=== PATIENT | male | born 1950 | race Two or more races ===

== ENCOUNTER 2017-09-30 02:29 | Inpatient (IN) | payer MEDICAID, MEDICARE ==
[~2017-09-30] VITALS: Ht 157.5 cm; Wt 68.3 kg
--- NOTE | 2017-09-30 02:30 | NUR ---
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 PT AAOX4 NO ACUTE DISTRESS NOTED, RESP EVEN AND UNLABORED. PLACE PT ON CARDIAC MONITORING, CONTINUOUS POX. ER MD AT BEDSIDE TO EVAL PT WITH ORDERS RECEIVED. WILL CARRY OUT ORDERS.
[2017-09-30] MEDS ORDERED: NITROGLYCERIN 0.4 MG/TAB BOTTLE ONE (02:53)
[2017-09-30 02:54] LABS: BASOPHILS # (AUTO) 0.1 /CMM (0.0-0.2); BASOPHILS % (AUTO) 0.6 % (0.0-2.0); EOSINOPHILS % (AUTO) 2.1 % (0.0-6.0); HEMATOCRIT 41 % (39-51); HEMOGLOBIN 13.7 g/dL (13.5-17.5); LYMPHOCYTES # (AUTO) 3.7 /CMM (0.8-4.8); LYMPHOCYTES % (AUTO) 43.2 % (20.0-44.0); MEAN CORPUSCULAR HGB CONC 33 g/dl (31.0-36.0); MEAN CORPUSCULAR VOLUME 83 fL (80-96); MONOCYTES # (AUTO) 0.6 /CMM (0.1-1.30); MONOCYTES % (AUTO) 6.6 % (2.0-12.0); NEUTROPHILS # (AUTO) 4.1 /CMM (1.8-8.9); NEUTROPHILS % (AUTO) 47.5 % (43.0-81.0); PLATELET COUNT (AUTO) 237 /CMM (150-450); RDW COEFFICIENT OF VARIATION 14.2 (11.5-15.0); RED BLOOD CELL COUNT(AUTO) 4.97 MIL/uL (4.5-6.0); WHITE BLOOD COUNT (AUTO) 8.7 K/uL (4.3-11.0)
[2017-09-30] MEDS ORDERED: ASPIRIN 325 MG TABLET ONE (02:54)
[2017-09-30] MEDS ORDERED: NITROGLYCERIN 0.4 MG/TAB BOTTLE SL ONE (03:00)
[2017-09-30] MEDS ORDERED: ASPIRIN 325 MG TABLET PO ONE (03:00)
[2017-09-30 03:09] LABS: CALCIUM, SERUM 8.6 mg/dL (8.5-10.1); CARBON DIOXIDE 26 mmol/L (21-32); CHLORIDE 105 mmol/L (98-107); CREATININE 1.1 mg/dL (0.6-1.3); GLUCOSE 118 mg/dL (74-106); POTASSIUM 3.8 mmol/L (3.5-5.1); SODIUM SERUM 140 mmol/L (136-145); UREA NITROGEN, BLOOD 16 mg/dL (7-18)
[2017-09-30 03:12] LABS: INR 1.01 (0.87-1.13)
[2017-09-30 03:14] LABS: TROPONIN I < 0.017 ng/mL (0.00-0.056)
[2017-09-30 03:27] LABS: ALANINE AMINOTRANSFERASE 42 U/L (12-78); ALBUMIN 3.8 g/dL (3.4-5.0); ALKALINE PHOSPHATASE 81 U/L (46-116); ASPARTATE AMINOTRANSFERASE 31 U/L (15-37); B-TYPE NATRIURETIC PEPTIDE 103 PG/ML (0-125); BILIRUBIN,TOTAL 0.3 mg/dL (0.2-1.0); TOTAL PROTEIN, SERUM 7.7 g/dL (6.4-8.2)
[2017-09-30] MEDS ORDERED: METF-440 PO (03:31)
[2017-09-30] MEDS ORDERED: LISI10TA5 PO (03:31)
[2017-09-30] MEDS ORDERED: ATOR40TA PO (03:31)
[2017-09-30] MEDS ORDERED: DOCU100T2 PO (03:31)
[2017-09-30] MEDS ORDERED: TYL2T MC (03:31)
[2017-09-30] MEDS ORDERED: ASPI-605 PO (03:31)
[2017-09-30] MEDS ORDERED: MAGN400T6 PO (03:31)
[2017-09-30] MEDS ORDERED: FURO20TA4 PO (03:31)
[2017-09-30] MEDS ORDERED: METO50TA16 PO (03:31)
[2017-09-30] MEDS ORDERED: POTA10CA43 PO (03:31)
[2017-09-30] MEDS ORDERED: ESCI5TAB PO (03:31)
[2017-09-30] MEDS ORDERED: APIX5TAB PO (03:31)
[2017-09-30] MEDS ORDERED: LACT1CAP7 PO (03:31)
[2017-09-30] MEDS ORDERED: LANS30CA56 PO (03:31)
[2017-09-30] MEDS ORDERED: LEVO25PO PO (03:31)
--- NOTE | 2017-09-30 04:04 | NUR ---
PER ADMITTING OKAY TO ADMIT.
--- NOTE | 2017-09-30 04:05 | NUR ---
CALLED [facility] FOR PANEL CALL. DR MELTON SPEAKING TO NO MIXON REGARDING ADMISISON
--- NOTE | 2017-09-30 04:24 | NUR ---
REPORT CALLED TO EDUCATION SUPERVISORMADHU CODY. WILL TRANSPORT PT VIA ACLS PROTOCOL.
[2017-09-30] MEDS ORDERED: METO-356 PO (04:26)
[2017-09-30] MEDS ORDERED: ONDANSETRON HCL/PF 4 MG/2 ML VIAL IVP PRN (04:30)
[2017-09-30] MEDS ORDERED: MORPHINE SULFATE INJ 4 MG/ML DISP.SYRIN IV PRN (04:30)
[2017-09-30] MEDS ORDERED: Z GUARD REMEDY 2 OZ OINT TP PRN (04:30)
[2017-09-30] MEDS ORDERED: MAGNESIUM HYDROXIDE 30 ML UDC PO PRN (04:30)
[2017-09-30] MEDS ORDERED: ACETAMINOPHEN 325 MG TABLET PO PRN (04:30)
[2017-09-30] MEDS ORDERED: HYDROCODONE/APAP 5/325MG 1 EACH TABLET PO PRN (04:30)
[2017-09-30] MEDS ORDERED: MAG HYDROX/AL HYDROX/SIMETH 30 ML UDC PO PRN (04:30)
[2017-09-30 04:50] VITALS: BP 125/67
--- NOTE | 2017-09-30 04:50 | NUR ---
LITHOGRAPH DESIGNERNURSE SANE NOTE PT ARRIVED TO TELE UNIT IN STABLE CONDITION VIA GURNEY ACCOMPANIED BY ER STAFF. PT ABLE TO AMBULATE FROM GURNEY TO BED WITH ASSISTANCE. PT IS A/O X4, AFEBRILE. RESPIRATIONS ARE EVEN AND UNLABORED, NOT IN ANY ACUTE DISTRESS NOTED. PUPILS ARE REACTIVE TO LIGHT. BILATERAL HAND MRI CT TECH ARE STRONG AND EQUAL. DENIES ANY PAIN AT THIS TIME. NO C/O SOB, N/V. ABDOMEN IS SOFT AND NONDISTENDED. BOWEL SOUNDS ARE PRESENT IN ALL 4 QUADRANTS. DENIES ANY BLADDER DISCOMFORT. IV SITE TO RAC INTACT, NO INFILTRATION NOTED. DRESSING KEPT CLEAN AND DRY. SURGICAL INCISION SCAR NOTED TO MID LOWER ABD, SKIN IS INTACT, NO S/SX OF INFECTION NOTED. PHOTO TAKEN AND PLACED IN PTS CHART. SAFETY MEASURES ARE IN PLACE. INSTRUCTED PT TO USE CALL LIGHT WHEN ASSISTANCE IS NEEDED, CALL LIGHT IS LEFT WITHIN REACH. LAZARA MIXON MADE AWARE OF ADMISSION W/ ORDERS NOTED AND CARRIED OUT.
[2017-09-30 04:55] VITALS: BP 125/67
--- NOTE | 2017-09-30 05:15 | NUR ---
SSIS ARCHITECT NOTE CALLED LAZARA MIXON RE: MED RECON. PER APURVA TO DISCONTINUE ALL MEDICATIONS EXCEPT THE ORDER SETS AND TO NEW ORDER OF METOPROLOL SUCCINATE 25MG PO DAILY. ORDERS READ BACK AND VERIFIED. ORDERS NOTED AND CARRIED OUT.
--- NOTE | 2017-09-30 06:33 | NUR ---
BARBER CLOSING NOTES NEEDS MET AND RENDERED. AWAKE AND RESPONSIVE, AFEBRILE. RESPIRATIONS ARE EVEN AND UNLABORED, NOT IN ANY ACUTE DISTRESS NOTED. DENIES ANY PAIN AT THIS TIME. NO C/O SOB, N/V. IV SITE INTACT, NO INFILTRATION NOTED. DRESSING KEPT CLEAN AND DRY. SAFETY MEASURES ARE IN PLACE. BED IS IN ITS LOW AND LOCKED POSITION. REMINDED PT TO USE CALL LIGHT WHEN ASSISTANCE IS NEEDED. WILL ENDORSE TO NEXT SHIFT FOR CONTINUITY OF CARE.
[2017-09-30 08:00] VITALS: BP 130/74
--- NOTE | 2017-09-30 08:00 | NUR ---
MS RN NOTES PATIENT IN BED RESTING NO SOB OR ACUTE DISTRESS NOTED. PATIENT ALERT, ORIENTED X4. VERBALIZES REQUEST TO BE DISCHARGE HOME. INSTRUCTED PATIENT TO WAIT FOR EVALUATION BY DR. SOLOMON AND DR. HARTMANN. VERBALIZED UNDERSTANDING. PERIPHERAL IV INTACT PATENT. BED IN LOW LOCKED POSITION . WILL CONTINUE TO MONITOR.
[2017-09-30] MEDS ORDERED: METFORMIN 500 MG TABLET PO SCH (09:00)
[2017-09-30] MEDS ORDERED: ASPIRIN EC 81 MG TABLET.DR PO SCH (09:00)
[2017-09-30] MEDS ORDERED: APIXABAN 5 MG TABLET PO SCH (09:00)
[2017-09-30] MEDS ORDERED: LISINOPRIL (10MG) 10 MG TABLET PO SCH (09:00)
[2017-09-30] MEDS ORDERED: LACTOBACILLUS RHAMNOSUS GG 1 EACH CAP.SPRINK PO SCH (09:00)
[2017-09-30] MEDS ORDERED: METOPROLOL TARTRATE 50 MG TABLET PO SCH (09:00)
[2017-09-30] MEDS ORDERED: Medication Not On Formulary EA (Escitalopram Oxalate (Lexapro) 1 TAB) PO SCH (09:00)
[2017-09-30] MEDS ORDERED: METOPROLOL SUCCINATE 25 MG TAB.SR.24H PO SCH ×2 (09:00)
[2017-09-30] MEDS ORDERED: ASPIRIN 81 MG TAB.CHEW PO SCH (09:00)
[2017-09-30] MEDS ORDERED: FUROSEMIDE 20 MG TABLET PO SCH (09:00)
[2017-09-30] MEDS ORDERED: PANTOPRAZOLE 40 MG TABLET.DR PO SCH (09:00)
[2017-09-30] MEDS ORDERED: MAGNESIUM OXIDE 400 MG TABLET PO SCH (09:00)
[2017-09-30] MEDS ORDERED: DOCUSATE SODIUM LIQ 100 MG/10 ML UDC PO SCH (09:00)
[2017-09-30 09:11] VITALS: BP 130/74
--- NOTE | 2017-09-30 11:30 | NUR ---
RN NOTES PATIENT RETURNED FROM CTA STABLE CONDITION. BP OF 122/62 PULE :58 RESP.: 18 O2 SAT 98% WILL CONTINUE TO MONITOR.
--- NOTE | 2017-09-30 13:40 | NUR ---
MS RN NOTES DR. HARTMANN MADE AWARE OF CTA RESULTS STATES TO DISCHARGE PATIENT HOME TO FOLLOW UP WITH [employer] CONSULTANT. ORDERS NOTED AND CARRIED OUT.
[2017-09-30] MEDS ORDERED: ASPI-1152 PO (14:12)
--- NOTE | 2017-09-30 14:13 | NUR ---
MS RN NOTES PATIENT DISCHARGED HOME IN STABLE CONDITION NO SOB OR ACUTE DISTRESS NOTED. PATIENT ALERT, ORIENTED X4 DISCHARGE INSTRUCTIONS PROVIDED VERBALIZED UNDERSTANDING. ALL BELONGINGS ACCOUNTED FOR, BELONGING LIST SIGNED. DISCHARGE PROTOCOL FOLLOWED. MEDICAL RECORDS PROVIDED TO FOLLOW UP WITH [employer] SPECIALIST. STATES HE WILL SEE HIS [employer] SPECIALIST TOMORROW MORNING. PERIPHERAL IV REMOVED. ID BAND REMOVED. PATIENT ESCORTED TO CAR WITH FRIEND.
[2017-09-30] MEDS ORDERED: ATORVASTATIN 40 MG TABLET PO SCH (18:00)
== END 2017-09-30 14:10 | disposition home or self-care (01) | DRG 198 ==
LOC: ER 02:31 → TELE 04:10 → MED 12:09
PROVIDERS: ADMIT Nurse Practitioner Acute Care; ATTEND Nurse Practitioner Acute Care
DX: I25.10 Atherosclerotic heart disease of native coronary artery without angina pectoris (principal); I10 Essential (primary) hypertension; Z79.82 Long term (current) use of aspirin; Z79.84 Long term (current) use of oral hypoglycemic drugs; Z79.899 Other long term (current) drug therapy
CPT/HCPCS: 36415; 71045-TC; 75574; 80048-TC; 80076-TC; 83880; 84484-TC; 85025-TC; 85730-TC; 87081-TC; 93307-TC; A4606; Z7610

== ENCOUNTER 2018-07-17 05:42 | Inpatient (IN) | payer MEDICARE, MEDICAID ==
[~2018-07-17] VITALS: Ht 160 cm; Wt 66.7 kg
[2018-07-17] VITALS (7 sets, daily range): BP systolic 117–126; BP diastolic 61–74
[~2018-07-17 05:42] MED LIST: ASPI-1152 PO; ATOR40TA PO; FINA5TAB11 PO; HYDR-4384 PO; ISOS30TA6 PO; METO-356 PO; NITR0.4T SL; SERT50TA PO; TAMS-12 PO; TICA90TA PO
[2018-07-17 06:44] LABS: BASOPHILS % (AUTO) 0.4 % (0.0-2.0); EOSINOPHILS % (AUTO) 1.6 % (0.0-6.0); HEMATOCRIT 42 % (39-51); HEMOGLOBIN 13.9 g/dL (13.5-17.5); LYMPHOCYTES # (AUTO) 1.5 /CMM (0.8-4.8); LYMPHOCYTES % (AUTO) 25.7 % (20.0-44.0); MEAN CORPUSCULAR HGB CONC 33 g/dl (31.0-36.0); MEAN CORPUSCULAR VOLUME 89 fL (80-96); MONOCYTES # (AUTO) 0.5 /CMM (0.1-1.30); MONOCYTES % (AUTO) 8.1 % (2.0-12.0); NEUTROPHILS # (AUTO) 3.9 /CMM (1.8-8.9); NEUTROPHILS % (AUTO) 64.2 % (43.0-81.0); PLATELET COUNT (AUTO) 194 /CMM (150-450)
[2018-07-17 06:53] LABS: CALCIUM, SERUM 8.6 mg/dL (8.5-10.1); CARBON DIOXIDE 24 mmol/L (21-32); CHLORIDE 108 mmol/L (98-107); CREATININE 1.2 mg/dL (0.6-1.3); GLUCOSE 110 mg/dL (74-106); POTASSIUM 4.2 mmol/L (3.5-5.1); SODIUM SERUM 144 mmol/L (136-145); UREA NITROGEN, BLOOD 16 mg/dL (7-18)
[2018-07-17 07:08] LABS: ALANINE AMINOTRANSFERASE 37 U/L (12-78); ALBUMIN 3.6 g/dL (3.4-5.0); ALKALINE PHOSPHATASE 68 U/L (46-116); ASPARTATE AMINOTRANSFERASE 27 U/L (15-37); BILIRUBIN,DIRECT 0.2 mg/dL (0.0-0.2); BILIRUBIN,TOTAL 0.8 mg/dL (0.2-1.0); TOTAL PROTEIN, SERUM 7.1 g/dL (6.4-8.2)
[2018-07-17] MEDS ORDERED: NITROGLYCERIN PACKET 1 GM PACKET ONE ×2 (07:59→08:01)
[2018-07-17] MEDS ORDERED: ASPIRIN 325 MG TABLET ONE (07:59)
[2018-07-17] MEDS ORDERED: NITROGLYCERIN PACKET 1 GM PACKET TD ONE (08:00)
[2018-07-17] MEDS ORDERED: ASPIRIN 325 MG TABLET PO ONE (08:00)
[2018-07-17] MEDS ORDERED: ONDANSETRON HCL/PF 4 MG/2 ML VIAL IVP PRN (09:00)
[2018-07-17] MEDS ORDERED: MAG HYDROX/AL HYDROX/SIMETH 30 ML UDC PO PRN (09:00)
[2018-07-17] MEDS ORDERED: NITROGLYCERIN 0.4 MG/TAB BOTTLE SL PRN (09:00)
[2018-07-17] MEDS ORDERED: ACETAMINOPHEN 325 MG TABLET PO PRN (09:00)
[2018-07-17] MEDS ORDERED: Z GUARD REMEDY 2 OZ OINT TP PRN (09:00)
[2018-07-17] MEDS ORDERED: HYDROCODONE/APAP 5/325MG 1 EACH TABLET PO PRN (09:00)
[2018-07-17] MEDS ORDERED: MAGNESIUM HYDROXIDE 30 ML UDC PO PRN (09:00)
[2018-07-17] MEDS ORDERED: ZOLPIDEM TARTRATE 5 MG TABLET PO PRN (09:00)
[2018-07-17] MEDS ORDERED: LEVO500T90 PO (09:12)
[2018-07-17] MEDS ORDERED: OMEP40CA37 PO (09:12)
[2018-07-17] MEDS: FINASTERIDE (5 MG) 5 MG TABLET PO SCH (10:00)
[2018-07-17] MEDS: METOPROLOL SUCCINATE 25 MG TAB.SR.24H PO SCH (10:00)
[2018-07-17] MEDS: ISOSORBIDE MONONITRATE (30MG) 30 MG TAB.SR.24H PO SCH (10:00)
[2018-07-17] MEDS: ATORVASTATIN 40 MG TABLET PO SCH (10:00)
[2018-07-17] MEDS: ASPIRIN EC 81 MG TABLET.DR PO SCH (10:00)
[2018-07-17] MEDS: SERTRALINE HCL 50 MG TABLET PO SCH (10:00)
[2018-07-17] MEDS: TAMSULOSIN 0.4 MG CAP.SR.24H PO SCH (10:00)
[2018-07-17] MEDS: TICAGRELOR 90 MG TABLET PO SCH ×2 (10:22→16:32)
[2018-07-17] MEDS ORDERED: IOHEXOL-350 100 ML VIAL IV ONE (12:35)
[2018-07-17] MEDS ORDERED: IV NS 0.9% 250 ML IV ONE (12:35)
[2018-07-17] MEDS ORDERED: CT SWABBABLE VALVE TRANS SET 1 EA INFUS.SET MC ONE (12:35)
[2018-07-17] MEDS ORDERED: METOPROLOL TARTRATE INJ 5 MG/5 ML AMPUL ONE (12:37)
[2018-07-17] MEDS ORDERED: IV NS 0.9% 500 ML IV ONE (13:00)
[2018-07-17] MEDS ORDERED: METOPROLOL TARTRATE INJ 5 MG/5 ML AMPUL IVP ONE (13:00)
[2018-07-18] VITALS: BP 119/64
[2018-07-18 04:00] VITALS: BP 136/77
[2018-07-18 04:55] VITALS: BP 136/77
[2018-07-18 07:13] LABS: BASOPHILS % (AUTO) 0.4 % (0.0-2.0); EOSINOPHILS % (AUTO) 2.2 % (0.0-6.0); HEMATOCRIT 44 % (39-51); HEMOGLOBIN 14.7 g/dL (13.5-17.5); LYMPHOCYTES # (AUTO) 1.9 /CMM (0.8-4.8); LYMPHOCYTES % (AUTO) 29.9 % (20.0-44.0); MEAN CORPUSCULAR HGB CONC 34 g/dl (31.0-36.0); MEAN CORPUSCULAR VOLUME 89 fL (80-96); MONOCYTES # (AUTO) 0.5 /CMM (0.1-1.30); MONOCYTES % (AUTO) 8.4 % (2.0-12.0); NEUTROPHILS # (AUTO) 3.8 /CMM (1.8-8.9); NEUTROPHILS % (AUTO) 59.1 % (43.0-81.0); PLATELET COUNT (AUTO) 192 /CMM (150-450); RED BLOOD CELL COUNT(AUTO) 4.91 MIL/uL (4.5-6.0); WHITE BLOOD COUNT (AUTO) 6.4 K/uL (4.3-11.0)
[2018-07-18 07:44] LABS: CALCIUM, SERUM 9.1 mg/dL (8.5-10.1); CREATININE 1.2 mg/dL (0.6-1.3); MAGNESIUM 2.3 mg/dL (1.8-2.4); PHOSPHORUS 3.7 mg/dL (2.5-4.9); POTASSIUM 4.6 mmol/L (3.5-5.1)
[2018-07-18 07:51] LABS: THYROID STIMULATING HORMONE 0.676 uIU/mL (0.358-3.74)
[2018-07-18 08:00] VITALS: BP 130/72
[2018-07-18] MEDS: TICAGRELOR 90 MG TABLET PO SCH (08:57)
[2018-07-18] MEDS: METOPROLOL SUCCINATE 25 MG TAB.SR.24H PO SCH (08:58)
[2018-07-18] MEDS: FINASTERIDE (5 MG) 5 MG TABLET PO SCH (08:58)
[2018-07-18] MEDS: TAMSULOSIN 0.4 MG CAP.SR.24H PO SCH (08:58)
[2018-07-18] MEDS: ATORVASTATIN 40 MG TABLET PO SCH (08:58)
[2018-07-18 08:59] VITALS: BP 130/72
[2018-07-18] MEDS: ASPIRIN EC 81 MG TABLET.DR PO SCH (08:59)
[2018-07-18] MEDS: SERTRALINE HCL 50 MG TABLET PO SCH (08:59)
[2018-07-18] MEDS: ISOSORBIDE MONONITRATE (30MG) 30 MG TAB.SR.24H PO SCH (08:59)
== END 2018-07-18 13:10 | disposition home or self-care (01) | DRG 303 ==
LOC: ER 05:43 → TELE 09:28 → MED 07-18 10:13
PROVIDERS: ADMIT Student in an Organized Health Care Education/Training Program; ATTEND Student in an Organized Health Care Education/Training Program
DX: I25.10 Atherosclerotic heart disease of native coronary artery without angina pectoris (principal); E78.5 Hyperlipidemia, unspecified; I10 Essential (primary) hypertension; E11.9 Type 2 diabetes mellitus without complications; G20 Parkinson's disease; N40.0 Benign prostatic hyperplasia without lower urinary tract symptoms; Z95.5 Presence of coronary angioplasty implant and graft; Z79.82 Long term (current) use of aspirin; Z79.02 Long term (current) use of antithrombotics/antiplatelets; Z90.79 Acquired absence of other genital organ(s); Z79.899 Other long term (current) drug therapy
CPT/HCPCS: 36415; 71045-TC; 75574; 80048-TC; 80061-TC; 80076-TC; 83735-TC; 84100-TC; 84443-TC; 84484-TC; 85025-TC; 85730-TC; 87081-TC; G0378; J3490; J7050; Q9967

== ENCOUNTER 2020-07-02 13:20 | Inpatient (IN) | payer MEDICARE, OTHER ==
[~2020-07-02] VITALS: Ht 165.1 cm; Wt 83.9 kg
[~2020-07-02 13:20] MED LIST changes: -ASPI-1152 PO; +ASPI-1420 PO; -ISOS30TA6 PO; +ISOS30TA86 PO; -METO-356 PO; +METO25TA4 PO; +OMEP40CA13 PO
--- NOTE | 2020-07-02 13:20 | NUR ---
DR. WEST AT BEDSIDE FOR EVALUATION. CALLED STROKE ACTIVATED AT 1311. PATIENT TAKEN TO CT AT 1315. LWK 30 MINUTES SIGN HANGER.
--- NOTE | 2020-07-02 13:20 | NUR ---
PATIENT ARRIVED AT 1310.
--- NOTE | 2020-07-02 13:20 | NUR ---
IV LINE ESTABLISHED AT [facility] G18 IV, BLOOD DRAWN AND SENT TO LAB.
--- NOTE | 2020-07-02 13:27 | NUR ---
PATIENT CAME BACK FROM CT.
[2020-07-02 13:34] LABS: BASOPHILS % (AUTO) 0.8 % (0.0-2.0); EOSINOPHILS % (AUTO) 1.9 % (0.0-6.0); HEMATOCRIT 42 % (39-51); HEMOGLOBIN 14.2 g/dL (13.5-17.5); LYMPHOCYTES # (AUTO) 1.8 /CMM (0.8-4.8); LYMPHOCYTES % (AUTO) 32.2 % (20.0-44.0); MEAN CORPUSCULAR HGB CONC 34 g/dl (31.0-36.0); MEAN CORPUSCULAR VOLUME 93 fL (80-96); MONOCYTES # (AUTO) 0.4 /CMM (0.1-1.30); MONOCYTES % (AUTO) 7.9 % (2.0-12.0); NEUTROPHILS # (AUTO) 3.1 /CMM (1.8-8.9); NEUTROPHILS % (AUTO) 57.2 % (43.0-81.0); PLATELET COUNT (AUTO) 178 /CMM (150-450); RED BLOOD CELL COUNT(AUTO) 4.53 MIL/uL (4.5-6.0); WHITE BLOOD COUNT (AUTO) 5.4 K/uL (4.3-11.0)
--- NOTE | 2020-07-02 13:40 | NUR ---
PATIENT PASSED SWALLOW EVAL. NIHSS 0. PATIENT IS C/O GENERALIZED WEAKNESS.
[2020-07-02 13:42] LABS: CALCIUM, SERUM 8.9 mg/dL (8.5-10.1); CARBON DIOXIDE 28 mmol/L (21-32); CHLORIDE 107 mmol/L (98-107); CREATININE 1.3 mg/dL (0.6-1.3); GLUCOSE 112 mg/dL (74-106); POTASSIUM 4.6 mmol/L (3.5-5.1); SODIUM SERUM 141 mmol/L (136-145); UREA NITROGEN, BLOOD 18 mg/dL (7-18)
--- NOTE | 2020-07-02 13:46 | NUR ---
CALLED [employer] [phone] PT IS BACK FROM CT AND IS AVAILABLE TO BE INTERVIEWED. ITS . AYSHA PONCE.
[2020-07-02] MEDS ORDERED: RANO500T6 PO (13:50)
[2020-07-02] MEDS ORDERED: ICOS1CAP MT (13:50)
[2020-07-02] MEDS ORDERED: DAPA5TAB PO (13:50)
[2020-07-02] MEDS ORDERED: EZET10TA32 PO (13:50)
[2020-07-02] MEDS ORDERED: ROSU20TA32 PO (13:50)
--- NOTE | 2020-07-02 13:50 | NUR ---
TELE NEURO WITH PATIENT FOR EVAL WITH AN [employer] WRITING CENTER DIRECTOR.
--- NOTE | 2020-07-02 14:00 | NUR ---
PER NEURO DR. PONCE HE WILL CALL BACK FOR RECOMMENDATION. Addendum: 07/02/20 at 1405 by SONY CORRECTION: DR. TONG
[2020-07-02] MEDS ORDERED: ATORVASTATIN 40 MG TABLET PO STA (14:06)
--- NOTE | 2020-07-02 14:06 | NUR ---
PER TELE NEURO DR. TONG, PATIENT IS NOT A CANDIDATE FOR [facility]. PHARMACY MADE AWARE.
--- NOTE | 2020-07-02 14:07 | NUR ---
[facility] CALLED PROFESSIONAL SERVICES MANAGER PAGED.
[2020-07-02] MEDS ORDERED: ATORVASTATIN 40 MG TABLET ONE ×2 (14:10→21:51)
[2020-07-02] MEDS ORDERED: ASPIRIN 81 MG TAB.CHEW ONE (14:10)
[2020-07-02 14:18] LABS: CHOLESTEROL 203 mg/dL (<200); HDL CHOLESTEROL 35 mg/dL (40-60); LDL 139 mg/dL (0-99); TRIGLYCERIDES 178 mg/dL (30-150)
--- NOTE | 2020-07-02 14:24 | NUR ---
PATIENT A/OX4, VERBALLYR ESPONSIVE, NO DISTRESS NOTED. NEEDS ATTENDED. KEPT COMFORTABLE.
[2020-07-02] MEDS ORDERED: ASPIRIN 81 MG TAB.CHEW PO ONE (14:30)
[2020-07-02] MEDS ORDERED: ONDANSETRON HCL/PF 4 MG/2 ML VIAL IVP PRN (15:30)
[2020-07-02] MEDS ORDERED: HYDROCODONE/APAP 5/325MG TABLET PO PRN (15:30)
[2020-07-02] MEDS ORDERED: ACETAMINOPHEN 325 MG TABLET PO PRN (15:30)
[2020-07-02 16:28] LABS: C-REACTIVE PROTEIN 0.4 mg/dL (0.0-0.9); THYROID STIMULATING HORMONE 1.025 uIU/mL (0.358-3.74)
[2020-07-02] MEDS ORDERED: LORAZEPAM INJ 2 MG/ML VIAL ONE (16:36)
[2020-07-02 16:41] LABS: ALBUMIN 3.7 g/dL (3.4-5.0); BILIRUBIN,DIRECT 0.1 mg/dL (0.0-0.2); BILIRUBIN,TOTAL 0.4 mg/dL (0.2-1.0)
[2020-07-02 16:42] LABS: TOTAL PROTEIN, SERUM 7.2 g/dL (6.4-8.2)
--- NOTE | 2020-07-02 16:44 | NUR ---
ACCIDENTALLY PULLED OUT ATIVAN, WASTED MEDICINE WITNESSED BY HILLARY AMEZQUITA RN. PHARMACY MADE AWARE
[2020-07-02] MEDS: RANOLAZINE 500 MG TAB.ER.12H PO SCH (17:23)
[2020-07-02] MEDS: BLOOD SUGAR DIAGNOSTIC 1 EACH STRIP IN SCH ×2 (17:23→22:02)
[2020-07-02] MEDS ORDERED: BLOOD SUGAR DIAGNOSTIC 1 EACH STRIP IN SCH (18:00)
--- NOTE | 2020-07-02 19:11 | NUR ---
REPORT GIVEN TO ADRIANO LEUNG FOR JOCELYN.
[2020-07-02] MEDS ORDERED: ENOXAPARIN SODIUM 40 MG/0.4 ML DISP.SYRIN SQ SCH (21:00)
[2020-07-02] MEDS ORDERED: ENOXAPARIN SODIUM 40 MG/0.4 ML DISP.SYRIN SQ ONE (21:51)
[2020-07-02] MEDS ORDERED: ATORVASTATIN 40 MG TABLET PO SCH (22:00)
--- NOTE | 2020-07-02 22:44 | NUR ---
PATIENT AMBULATED TO THE RESTROOM WITH A STEADY GAIT.
--- NOTE | 2020-07-02 23:13 | NUR ---
PATIENT GIVEN FOOD.
--- NOTE | 2020-07-03 01:13 | NUR ---
PATIENT AMBULATED TO THE RESTROOM WITH A STEADY GAIT.
--- NOTE | 2020-07-03 02:49 | NUR ---
REPORT GIVEN TO HONORIO LEUNG FOR JOCELYN.
--- NOTE | 2020-07-03 03:17 | NUR ---
PATIENT TAKEN UP TO ASSIGN ROOM FOR JOCELYN.
[2020-07-03 03:30] VITALS: BP 160/89
--- NOTE | 2020-07-03 03:42 | NUR ---
TELE/RN OPENING NOTES RECEIVED REPORT FROM ER NURSE ADRIANO LEUNG AT 0245HRS. PATIENT ARRIVED ON UNIT AT 0310HRS. PATIENT SUSTAINED NO INJURIES DURING TRANSPORT. PATIENT VITALS SIGNS ARE WITHIN NORMAL LIMITS. PATIENT ABLE TO AMBULATE SELF TO TO BED SAFELY. PATIENT IS ALERT AND ORIENTED X 4, HUNGARIAN SPEAKING. PATIENT BREATHING IS EVEN AND UNLABORED. NO SIGNS OF RESPIRATORY DISTRESS NOTED. PATIENT DENIES ANY PAIN AT THIS TIME. PATIENT IN NO SIGNS OF DISTRESS. SAFETY MEASURES ARE IN PLACE, BED IS LOCKED AND PLACED IN THE LOWEST POSITION, CALL LIGHT IS WITHIN REACH, SIDE RAILS UP X 2. WILL CONTINUE TO MONITOR.
[2020-07-03] MEDS: BLOOD SUGAR DIAGNOSTIC 1 EACH STRIP IN SCH ×2 (06:30→11:39)
--- NOTE | 2020-07-03 06:55 | NUR ---
TELE/RN CLOSING NOTES PATIENT IN BED SLEEPING EASY TO AROUSE. PATIENT IS ALERT AND ORIENTED X 3. PATIENT BREATHING IS EVEN AND UNLABORED. NO SIGNS OF SOB OR RESPIRATORY DISTRESS NOTED. PATIENT IN NO SIGNS OF DISTRESS. PATIENT STATES NO PAIN AT THIS TIME. IV ACCESS IN PLACE FLUSHING WELL. ALL NEEDS MET DURING SHIFT. SAFETY MEASURES ARE IN PLACE. BED IS LOCKED AND PLACED IN THE LOW POSITION, SIDE RAILS UP X 2, CALL LIGHT IS WITHIN REACH. WILL ENDORSE CARE TO DAY SHIFT NURSE.
[2020-07-03] MEDS ORDERED: PANTOPRAZOLE 40 MG TABLET.DR PO SCH (07:30)
[2020-07-03 07:41] LABS: BASOPHILS % (AUTO) 0.6 % (0.0-2.0); EOSINOPHILS % (AUTO) 2.6 % (0.0-6.0); HEMATOCRIT 43 % (39-51); HEMOGLOBIN 14.5 g/dL (13.5-17.5); LYMPHOCYTES # (AUTO) 1.9 /CMM (0.8-4.8); LYMPHOCYTES % (AUTO) 30.7 % (20.0-44.0); MEAN CORPUSCULAR HGB CONC 34 g/dl (31.0-36.0); MEAN CORPUSCULAR VOLUME 94 fL (80-96); MONOCYTES # (AUTO) 0.5 /CMM (0.1-1.30); MONOCYTES % (AUTO) 7.2 % (2.0-12.0); NEUTROPHILS # (AUTO) 3.7 /CMM (1.8-8.9); NEUTROPHILS % (AUTO) 58.9 % (43.0-81.0); PLATELET COUNT (AUTO) 177 /CMM (150-450); RED BLOOD CELL COUNT(AUTO) 4.57 MIL/uL (4.5-6.0); WHITE BLOOD COUNT (AUTO) 6.3 K/uL (4.3-11.0)
--- NOTE | 2020-07-03 07:45 | NUR ---
MULTIMEDIA MANAGER NOTE PATIENT IN BED RESTING COMFORTABLY. PATIENT IN NO ACUTE DISTRESS. NO SOB NOTED. PATIENT BREATHING IS EVEN AND UNLABORED. PATIENT SAFETY PRECAUTIONS IN PLACE. PATIENT BED IS LOCKED AND IN LOWEST POSITION. CALL LIGHT WITHIN REACH. WILL CONTINUE TO MONITOR.
[2020-07-03 08:00] VITALS: BP 148/78
[2020-07-03 08:02] LABS: CREATININE 1.2 mg/dL (0.6-1.3); POTASSIUM 3.9 mmol/L (3.5-5.1)
[2020-07-03] MEDS: RANOLAZINE 500 MG TAB.ER.12H PO SCH (08:55)
[2020-07-03] MEDS ORDERED: TAMSULOSIN 0.4 MG CAP.SR.24H PO SCH (09:00)
[2020-07-03] MEDS ORDERED: ISOSORBIDE MONONITRATE (30MG) 30 MG TAB.SR.24H PO SCH (09:00)
[2020-07-03] MEDS ORDERED: EZETIMIBE 10 MG TABLET PO SCH (09:00)
[2020-07-03] MEDS ORDERED: SERTRALINE HCL 50 MG TABLET PO SCH (09:00)
[2020-07-03] MEDS ORDERED: FINASTERIDE (5 MG) 5 MG TABLET PO SCH (09:00)
[2020-07-03] MEDS ORDERED: ASPIRIN EC 81 MG TABLET.DR PO SCH (09:00)
--- NOTE | 2020-07-03 11:39 | NUR ---
DIRECT MARKETING REPRESENTATIVE NOTE PATIENT BLOOD SUGAR IS 117. NO INSULIN COVERAGE NEEDED PER PROTOCOL.
--- NOTE | 2020-07-03 15:00 | NUR ---
WHALE TRAINER NOTE OLY CHARGE NURSE SPOKE WITH DR. ESPINOZA AND PER MD HE IS CLEARED FOR DISCHARGE. DR. SHAHBAZ AVILA.
[2020-07-03 16:00] VITALS: BP 123/68
--- NOTE | 2020-07-03 16:10 | NUR ---
BLOCK OUT MACHINE OPERATOR NOTE PATIENT MEDICALLY CLEARED FOR DISCHARGE. PATIENT IN NO ACUTE DISTRESS. NO SOB NOTED. PATIENT BREATHING IS EVEN AND UNLABORED. PATIENT DC INSTRUCTIONS PROVIDED TO PATIENT AND FAMILY. PATIENT AND FAMILY VERBALIZED UNDERSTANDING. PATIENT ID BAND REMOVED. IV REMOVED. PATIENT BELONGINGS LIST SIGNED AND BELONGINGS WITH PATIENT. PATIENT REFUSED SKIN ASSESSMENT, EDUCATED RISKS VS BENEFITS. PATIENT CONTINUED TO REFUSE. PATIENT KEPT CLEAN, DRY, AND COMFORTABLE THROUGHOUT SHIFT. NEEDS AND CONCERNS ADDRESSED. PATIENT AMBULATORY WITH STEADY GAIT. PATIENT PICKED UP BY FAMILY GOING HOME. MD AWARE OF DISCHARGE.
--- NOTE | 2020-07-04 10:30 | NUR ---
Chief Pharmacist Consult: Chief Pharmacist consult was requested by Physician Colby for TIA/CVA. Pt was discharged on Saturday07/03/20 and the SW received this consult on 07/04/20.
== END 2020-07-03 16:15 | disposition home or self-care (01) | DRG 69 ==
LOC: ER 13:21 → OBSVTOIN 16:23 → TRANSITION 16:23 → TELE 07-03 02:09
DX: G45.9 Transient cerebral ischemic attack, unspecified (principal); E78.5 Hyperlipidemia, unspecified; I10 Essential (primary) hypertension; E11.9 Type 2 diabetes mellitus without complications; Z95.5 Presence of coronary angioplasty implant and graft; I25.10 Atherosclerotic heart disease of native coronary artery without angina pectoris; Z90.79 Acquired absence of other genital organ(s); Z79.82 Long term (current) use of aspirin; Z79.02 Long term (current) use of antithrombotics/antiplatelets; G20 Parkinson's disease; E66.9 Obesity, unspecified; Z68.30 Body mass index [BMI] 30.0-30.9, adult; N40.0 Benign prostatic hyperplasia without lower urinary tract symptoms
CPT/HCPCS: 36415; 70450-TC; 71045-TC; 80048-TC; 80061-TC; 80076-TC; 82550-TC; 82962-TC; 83880; 84443-TC; 84484-TC; 85025-TC; 85652-TC; 85730-TC; 86140-TC; 87081-TC; 93307-TC; 93880-TC; 97116-TC; 97530-TC; C9803; G0378; J1650; J2060; J2405

== ENCOUNTER 2020-08-07 11:53 | Inpatient (IN) | payer MEDICARE, OTHER ==
[~2020-08-07] VITALS: Ht 162.6 cm; Wt 75.7 kg
[~2020-08-07 11:53] MED LIST changes: -ATOR40TA PO; +DAPA5TAB PO; +EZET10TA32 PO; -HYDR-4384 PO; +ICOS1CAP PO; -NITR0.4T SL; +RANO500T6 PO; +ROSU20TA32 PO; -TICA90TA PO
--- NOTE | 2020-08-07 12:08 | NUR ---
[id number], from home, c/o chest pain x 30 mins, ASA 324mg and 1 spray nitro given on scene 4/10 pain scale. On room air, breathing evenly and unlabored. Connected to the monitor and pulse ox. Will continue to monitor accordingly.
[2020-08-07 12:31] LABS: CARBON DIOXIDE 27 mmol/L (21-32); CHLORIDE 105 mmol/L (98-107); CREATININE 1.2 mg/dL (0.6-1.3); GLUCOSE 130 mg/dL (74-106); POTASSIUM 4.2 mmol/L (3.5-5.1); SODIUM SERUM 141 mmol/L (136-145); UREA NITROGEN, BLOOD 18 mg/dL (7-18)
[2020-08-07 12:41] LABS: BASOPHILS % (AUTO) 0.6 % (0.0-2.0); EOSINOPHILS % (AUTO) 1.6 % (0.0-6.0); HEMATOCRIT 43 % (39-51); HEMOGLOBIN 14.4 g/dL (13.5-17.5); LYMPHOCYTES # (AUTO) 1.5 /CMM (0.8-4.8); LYMPHOCYTES % (AUTO) 30.1 % (20.0-44.0); MEAN CORPUSCULAR HGB CONC 33 g/dl (31.0-36.0); MEAN CORPUSCULAR VOLUME 95 fL (80-96); MONOCYTES # (AUTO) 0.5 /CMM (0.1-1.30); MONOCYTES % (AUTO) 8.9 % (2.0-12.0); NEUTROPHILS % (AUTO) 58.8 % (43.0-81.0); PLATELET COUNT (AUTO) 200 /CMM (150-450); RED BLOOD CELL COUNT(AUTO) 4.59 MIL/uL (4.5-6.0); WHITE BLOOD COUNT (AUTO) 5.1 K/uL (4.3-11.0)
[2020-08-07 12:45] LABS: ALANINE AMINOTRANSFERASE 63 U/L (12-78); ALBUMIN 3.9 g/dL (3.4-5.0); ALKALINE PHOSPHATASE 73 U/L (46-116); ASPARTATE AMINOTRANSFERASE 44 U/L (15-37); B-TYPE NATRIURETIC PEPTIDE 46 PG/ML (0-125); BILIRUBIN,DIRECT 0.2 mg/dL (0.0-0.2); BILIRUBIN,TOTAL 0.7 mg/dL (0.2-1.0); TOTAL PROTEIN, SERUM 7.6 g/dL (6.4-8.2)
[2020-08-07] MEDS ORDERED: CLOP75TA15 PO (12:54)
[2020-08-07] MEDS ORDERED: *INSULIN REGULAR(HUMULIN R)HUM 100 UNIT/ML VIAL SQ PRN (14:30)
[2020-08-07] MEDS ORDERED: ACETAMINOPHEN 325 MG TABLET PO PRN (14:30)
[2020-08-07] MEDS ORDERED: MAG HYDROX/AL HYDROX/SIMETH 30 ML UDC PO PRN (14:30)
[2020-08-07] MEDS ORDERED: HYDROCODONE/APAP 5/325MG TABLET PO PRN (14:30)
[2020-08-07] MEDS ORDERED: ONDANSETRON HCL/PF 4 MG/2 ML VIAL IVP PRN (14:30)
[2020-08-07] MEDS ORDERED: MAGNESIUM HYDROXIDE 30 ML UDC PO PRN (14:30)
[2020-08-07] MEDS ORDERED: Z GUARD REMEDY 2 OZ OINT TP PRN (14:30)
[2020-08-07] MEDS ORDERED: DEXTROSE 50%-WATER 50 ML DISP.SYRIN IV PRN (14:30)
[2020-08-07] MEDS ORDERED: INSULIN REGULAR, HUMAN 100 UNIT/ML 3 ML VIAL SQ PRN (14:30)
--- NOTE | 2020-08-07 16:44 | NUR ---
room 328-2
--- NOTE | 2020-08-07 16:54 | NUR ---
Report given to Clemencia LEUNG for debbi
--- NOTE | 2020-08-07 17:09 | NUR ---
wheeled patient via gurney accompanied by RN and emt in no distress. RN at bedside to assume care.
[2020-08-07] MEDS: RANOLAZINE 500 MG TAB.ER.12H PO SCH (17:27)
--- NOTE | 2020-08-07 17:34 | NUR ---
TELE/RN NOTES RECEIVED REPORT FROM AUDREY HAMILTON RN. PATIENT IS ALERT AND ORIENTED X4 70 YEAR OLD MALE PATIENT, FULL CODE, NO KNOWN ALLERGY, HISTORY OF PROSTATE CA, THYROID CA, HYPERTENSION, HYPOTHYROIDISM, ROOM AIR DIAGNOSIS OF COMPLETE HEART BLOCK. INITIAL ASSESSMENT WAS DONE AND RECORDED. PATIENT REFUSED SKIN ASSESSMENT. BP 135/68 TEMP 98.1 P 56 SAO2 97%. WILL CONTINUE TO MONITOR. Addendum: 08/07/20 at 1831 by NIELS CAPUTO RN ERROR
[2020-08-07] MEDS: BLOOD SUGAR DIAGNOSTIC 1 EACH STRIP VI SCH ×2 (18:14→22:09)
--- NOTE | 2020-08-07 18:35 | NUR ---
TELE/RN CLOSING NOTES RECEIVED REPORT FROM AUDREY HAMILTON RN. PATIENT IS ALERT AND ORIENTED X4 70 YEAR OLD MALE PATIENT, FULL CODE, NO KNOWN ALLERGY, HISTORY OF HYPERTENSION, DM, PARKINSON DISEASE,PROSTATECTOMY (06/2017) CAD, CARDIAC STENT (12/2017). INITIAL ASSESSMENT WAS DONE AND RECORDED. PATIENT REFUSED SKIN ASSESSMENT. BP 135/68 TEMP 98.1 P 56 SAO2 97%. WILL ENDORSED TO DIGITAL CARTOGRAPHER FOR JOCELYN..
--- NOTE | 2020-08-07 19:28 | NUR ---
RN NOTES PATIENT IS ALERT AND ORIENTED X4 NO PAIN OR DISCOMFORT VISIBLE OR REPORTED AT THIS TIME NO RESPIRATORY DISTRESS NOTED PT ON ROOM AIR TOLERATING WELL. PT HAS IV ACCESS ON THE L AC #18G INTACT NO SWELLING OR PAIN AT SITE. CALL LIGHT WITHIN REACH SAFETY PRECAUTIONS FOLLOWED.
[2020-08-07 20:00] VITALS: BP 130/68
[2020-08-07] MEDS ORDERED: ATORVASTATIN 40 MG TABLET PO SCH (22:00)
--- NOTE | 2020-08-07 22:22 | NUR ---
Patient is alert,lives locally in an apartment with his son. He is ambulatory and independent with adl's. No DME or homehealth reported. His pcp is Dr. Zuniga. Family will provide ride when discharge. Addendum: 08/07/20 at 2222 by DONNIE HUNT RN Amended: Links added.
--- NOTE | 2020-08-07 23:25 | NUR ---
RN NOTES NO INSULIN COVERAGE PROVIDED PER PT HE DID NOT HAVE ANYTHING TO EAT SINCE NOON HE DIDN'T WANT THE INSULIN. WILL CONTINUE TO MONITOR. SNACKS OFFERED PT REFUSED.
[2020-08-08] VITALS: BP 116/75
[2020-08-08 04:00] VITALS: BP 125/65
--- NOTE | 2020-08-08 06:56 | NUR ---
RN NOTES PATIENT IS ALERT AND ORIENTED X4 NO PAIN OR DISCOMFORT VISIBLE OR REPORTED AT THIS TIME NO RESPIRATORY DISTRESS NOTED PT ON ROOM AIR TOLERATING WELL. PT HAS IV ACCESS ON THE L AC #18G INTACT NO SWELLING OR PAIN AT SITE. CALL LIGHT WITHIN REACH SAFETY PRECAUTIONS FOLLOWED. ALL NURSING NEEDS MET AT THIS TIME WILL ENDORSE CARE TO DAY SHIFT NURSE.
[2020-08-08 07:15] LABS: BASOPHILS % (AUTO) 0.5 % (0.0-2.0); EOSINOPHILS % (AUTO) 2.3 % (0.0-6.0); HEMATOCRIT 43 % (39-51); HEMOGLOBIN 14.5 g/dL (13.5-17.5); LYMPHOCYTES # (AUTO) 2.1 /CMM (0.8-4.8); LYMPHOCYTES % (AUTO) 37.4 % (20.0-44.0); MEAN CORPUSCULAR HGB CONC 33 g/dl (31.0-36.0); MEAN CORPUSCULAR VOLUME 95 fL (80-96); MONOCYTES # (AUTO) 0.5 /CMM (0.1-1.30); MONOCYTES % (AUTO) 8.6 % (2.0-12.0); NEUTROPHILS # (AUTO) 2.9 /CMM (1.8-8.9); NEUTROPHILS % (AUTO) 51.2 % (43.0-81.0); PLATELET COUNT (AUTO) 167 /CMM (150-450); RED BLOOD CELL COUNT(AUTO) 4.57 MIL/uL (4.5-6.0); WHITE BLOOD COUNT (AUTO) 5.7 K/uL (4.3-11.0)
[2020-08-08] MEDS ORDERED: PANTOPRAZOLE 40 MG TABLET.DR PO SCH (07:30)
--- NOTE | 2020-08-08 07:33 | NUR ---
MEDICAL LIBRARY ASSISTANT OPENING NOTE PT RECEIVED AWAKE IN BED IN NO APPARENT DISTRESS. PT IS A/O X 4, VERBALLY ABLE TO MAKE NEEDS KNOWN WITH NO C/O PAIN AT THIS TIME. PT IS ON ROOM AIR WITH NO S/SX OF RESPIRATORY DISTRESS OF SOB NOTED. PT'S TELE MONITOR SHOWS SINUS BRADYCARDIA AT 59 BPM, BUT HAS NO S/SX OR C/O CARDIAC DISTRESS. PT HAS AN IV ACCESS ON LEFT AC G#18 SL, PATENT, INTACT AND FLUSHING WELL. SAFETY MEASURES IN PLACE: BED IN LOWEST POSITION AND LOCKED WITH BOTH UPPER SIDE RAILS UP X 2. CALL LIGHT PLACED WITHIN REACH. WILL CONTINUE TO MONITOR.
[2020-08-08] MEDS: BLOOD SUGAR DIAGNOSTIC 1 EACH STRIP VI SCH ×2 (07:42→11:26)
[2020-08-08 07:56] LABS: CALCIUM, SERUM 9.3 mg/dL (8.5-10.1); CREATININE 1.3 mg/dL (0.6-1.3); MAGNESIUM 2.5 mg/dL (1.8-2.4); PHOSPHORUS 3.7 mg/dL (2.5-4.9); POTASSIUM 4.8 mmol/L (3.5-5.1)
[2020-08-08 07:57] VITALS: BP 124/77
[2020-08-08] MEDS: RANOLAZINE 500 MG TAB.ER.12H PO SCH (08:23)
[2020-08-08] MEDS ORDERED: IV NS 0.9% 1,000 ML IV PRN (08:30)
[2020-08-08] MEDS ORDERED: NITROGLYCERIN 0.4 MG/TAB BOTTLE ONE (08:48)
[2020-08-08] MEDS ORDERED: IOHEXOL-350 100 ML VIAL IV ONE ×2 (08:48→09:52)
[2020-08-08] MEDS ORDERED: METOPROLOL TARTRATE INJ 5 MG/5 ML AMPUL ONE (08:48)
[2020-08-08] MEDS ORDERED: CT SWABBABLE VALVE TRANS SET 1 EA INFUS.SET MC ONE (08:49)
[2020-08-08] MEDS ORDERED: IV NS 0.9% 250 ML IV ONE (08:49)
[2020-08-08] MEDS ORDERED: CLOPIDOGREL BISULFATE 75 MG TABLET PO SCH (09:00)
[2020-08-08] MEDS ORDERED: ISOSORBIDE MONONITRATE (30MG) 30 MG TAB.SR.24H PO SCH (09:00)
[2020-08-08] MEDS ORDERED: ASPIRIN EC 81 MG TABLET.DR PO SCH (09:00)
[2020-08-08] MEDS ORDERED: TAMSULOSIN 0.4 MG CAP.SR.24H PO SCH (09:00)
[2020-08-08] MEDS ORDERED: FINASTERIDE (5 MG) 5 MG TABLET PO SCH (09:00)
[2020-08-08] MEDS ORDERED: SERTRALINE HCL 50 MG TABLET PO SCH (09:00)
[2020-08-08] MEDS ORDERED: METOPROLOL SUCCINATE 25 MG TAB.SR.24H PO SCH (09:00)
[2020-08-08] MEDS ORDERED: EZETIMIBE 10 MG TABLET PO SCH (09:00)
--- NOTE | 2020-08-08 09:04 | NUR ---
MOLD FILLER NOTES PATIENT LEFT FOR CT ANGIO HEART WITH 3D IMAGE. CONSENT SIGNED.
[2020-08-08 09:26] VITALS: BP 98/63
--- NOTE | 2020-08-08 09:27 | NUR ---
CTA notes: Post CTA, Metoprolol 5mg IVP x1 and Nitroquick 1tab given per CTA protocol, patient able to tolerate the procedure, denies any discomfort at this time, Transferred back to patient room in stable condition report given to bedside RN
[2020-08-08] MEDS ORDERED: NITROGLYCERIN 0.4 MG/TAB BOTTLE SL ONE (09:30)
[2020-08-08] MEDS ORDERED: METOPROLOL TARTRATE INJ 5 MG/5 ML AMPUL IVP PRN (09:30)
--- NOTE | 2020-08-08 14:48 | NUR ---
PROCESS DESIGNERAPPLE CHECKER NOTES PATIENT DISCHARGED HOME IN MEDICALLY STABLE CONDITION. PATIENT A/O X4 ON ROOM AIR. ALL DISCHARGE DOCUMENTATION READY AND TEACHING PROVIDED TO PATIENT REGARDING DISCHARGE INSTRUCTIONS; PATIENT VERBALIZED UNDERSTANDING. BELONGINGS ACCOUNTED FOR AND FORM SIGNED BY PATIENT WELL. IV ACCESS REMOVED BEFORE PATIENT LEFT THE FLOOR AND ID BAND WELL. PATIENT CALLED [facility] FOR CIGAR TOBACCO REHANDLER. LEFT THE FLOOR ACCOMPANIED BY RN AT 1420.
== END 2020-08-08 14:30 | disposition home or self-care (01) | DRG 303 ==
LOC: ER 11:57 → TELE 16:45
PROVIDERS: ADMIT Internal Medicine; ATTEND Internal Medicine
DX: I25.110 Atherosclerotic heart disease of native coronary artery with unstable angina pectoris (principal); N17.9 Acute kidney failure, unspecified; E11.9 Type 2 diabetes mellitus without complications; E78.5 Hyperlipidemia, unspecified; I10 Essential (primary) hypertension; Z79.899 Other long term (current) drug therapy; I25.10 Atherosclerotic heart disease of native coronary artery without angina pectoris; N40.0 Benign prostatic hyperplasia without lower urinary tract symptoms; Z90.79 Acquired absence of other genital organ(s); Z95.5 Presence of coronary angioplasty implant and graft; Z79.82 Long term (current) use of aspirin; Z79.02 Long term (current) use of antithrombotics/antiplatelets; G20 Parkinson's disease; Z85.46 Personal history of malignant neoplasm of prostate; E66.9 Obesity, unspecified; Z86.73 Personal history of transient ischemic attack (TIA), and cerebral infarction without residual deficits
CPT/HCPCS: 36415; 71045-TC; 75574; 80048-TC; 80061-TC; 80076-TC; 82962-TC; 83735-TC; 83880; 84100-TC; 84484-TC; 85025-TC; 87081-TC; C9803; G0378; J1815; J3490; J7050; Q9967

== ENCOUNTER 2025-03-22 17:14 | Inpatient (IN) | payer MEDICARE, OTHER ==
[~2025-03-22] VITALS: Ht 152.4 cm; Wt 74.4 kg
[~2025-03-22 17:14] MED LIST changes: +CLOP75TA15 PO; -OMEP40CA13 PO; +OMEP40CA21 PO
[2025-03-22] MEDS ORDERED: ONDANSETRON HCL/PF 4 MG/2 ML VIAL ONE (17:53)
[2025-03-22] MEDS ORDERED: MORPHINE SULFATE INJ 2 MG/ML DISP.SYRIN ONE (17:53)
[2025-03-22 17:57] LABS: PLATELET COUNT (AUTO) 230 K/uL (150-450); RED BLOOD CELL COUNT(AUTO) 4.40 MIL/uL (4.5-6.0); RED CELL DISTRIBUTION WIDTH 13.8 % (11.5-15.0); WHITE BLOOD COUNT (AUTO) 4.9 K/uL (4.3-11.0)
[2025-03-22] MEDS: IV NS 0.9% 1,000 ML BAG IV ONE (18:00)
[2025-03-22] MEDS: ONDANSETRON HCL/PF 4 MG/2 ML VIAL IVP ONE (18:00)
[2025-03-22 18:05] LABS: CALCIUM, SERUM 8.6 mg/dL (8.5-10.1); CREATININE 1.2 mg/dL (0.6-1.3); SODIUM SERUM 139 mmol/L (136-145); UREA NITROGEN, BLOOD 19 mg/dL (7-18)
[2025-03-22] MEDS: MORPHINE SULFATE INJ 2 MG/ML DISP.SYRIN IV ONE (18:05)
[2025-03-22 18:10] LABS: INR 1.14 (0.91-1.10)
[2025-03-22 18:11] LABS: ASPARTATE AMINOTRANSFERASE 60 U/L (15-37); TOTAL PROTEIN, SERUM 7.5 g/dL (6.4-8.2)
[2025-03-22 19:26] LABS: APPEARANCE,URINE CLEAR (CLEAR); BLOOD, URINE Small Ery/uL (NEGATIVE); LEUKOCYTE ESTERASE ,URINE Negative (NEGATIVE); NITRITE, URINE NEGATIVE (NEGATIVE); UGLUCOSE Negative (NEGATIVE)
[2025-03-22 19:32] LABS: ADD URINE CULTURE NO; SQUAMOUS EPITHELIAL CELL,UR None Seen /HPF (None Seen)
[2025-03-22 20:00] VITALS: BP 147/69; TEMP 97.5; O2SAT 97
[2025-03-22] MEDS ORDERED: ONDANSETRON HCL/PF 4 MG/2 ML VIAL IVP PRN (20:00)
[2025-03-22] MEDS ORDERED: Z GUARD REMEDY 4 OZ OINT TP PRN (20:00)
[2025-03-22] MEDS ORDERED: MAG HYDROX/AL HYDROX/SIMETH 30 ML UDC PO PRN (20:00)
[2025-03-22] MEDS ORDERED: ACETAMINOPHEN 325 MG TABLET PO PRN (20:00)
[2025-03-22 20:18] VITALS: O2SAT 96
[2025-03-22] MEDS: IV NS 0.9% 1,000 ML IV PRN (22:34)
[2025-03-23 06:23] LABS: PLATELET COUNT (AUTO) 190 K/uL (150-450); RED BLOOD CELL COUNT(AUTO) 4.32 MIL/uL (4.5-6.0); RED CELL DISTRIBUTION WIDTH 14.1 % (11.5-15.0); WHITE BLOOD COUNT (AUTO) 4.5 K/uL (4.3-11.0)
[2025-03-23 06:38] LABS: CALCIUM, SERUM 8.6 mg/dL (8.5-10.1); CREATININE 1.2 mg/dL (0.6-1.3); PHOSPHORUS 3.0 mg/dL (2.5-4.9); SODIUM SERUM 146.0 mmol/L (136-145); UREA NITROGEN, BLOOD 17.0 mg/dL (7-18)
[2025-03-23 08:00] VITALS: BP 184/69; TEMP 98.4; O2SAT 95
[2025-03-23] MEDS: HYDROMORPHONE 1 MG/1 ML DISP.SYRIN IV PRN (08:32)
[2025-03-23 08:35] VITALS: BP 175/72
[2025-03-23] MEDS: ISOSORBIDE MONONITRATE (30MG) 30 MG TAB.SR.24H PO SCH (08:39)
[2025-03-23] MEDS: DAPAGLIFLOZIN PROPANEDIOL 5 MG TABLET PO SCH (08:39)
[2025-03-23] MEDS: TAMSULOSIN 0.4 MG CAP.SR.24H PO SCH (08:39)
[2025-03-23] MEDS: METOPROLOL SUCCINATE 25 MG TAB.SR.24H PO SCH (08:40)
[2025-03-23] MEDS: RANOLAZINE 500 MG TAB.ER.12H PO SCH (08:40)
[2025-03-23] MEDS: ATORVASTATIN 40 MG TABLET PO SCH (08:40)
[2025-03-23] MEDS: FINASTERIDE (5 MG) 5 MG TABLET PO SCH (08:40)
[2025-03-23] MEDS: EZETIMIBE 10 MG TABLET PO SCH (08:41)
[2025-03-23] MEDS: SERTRALINE HCL 50 MG TABLET PO SCH (08:41)
[2025-03-23] MEDS: PANTOPRAZOLE 40 MG VIAL IV SCH (08:43)
[2025-03-23] MEDS ORDERED: Medication Not On Formulary EA (Icosapent Ethyl (Vascepa) 2 GM) PO SCH (09:00)
[2025-03-23 10:28] VITALS: BP 146/88
[2025-03-23] MEDS ORDERED: NAPR-1009 PO (10:30)
[2025-03-23] MEDS ORDERED: ERGO500093 PO (10:30)
[2025-03-23] MEDS ORDERED: MYRBETRIQ PO (10:30)
[2025-03-23] MEDS ORDERED: GABA-532 PO (10:30)
[2025-03-23] MEDS ORDERED: ACET325T53 PO (10:30)
[2025-03-23] MEDS ORDERED: MEMA7CAP2 PO (10:30)
[2025-03-23] MEDS ORDERED: FENO145T21 PO (10:30)
[2025-03-23] MEDS ORDERED: ESCI20TA PO (10:30)
[2025-03-23] MEDS ORDERED: EVOL140S2 SQ (10:30)
[2025-03-23] MEDS ORDERED: LOSA50TA39 PO (10:30)
[2025-03-23] MEDS ORDERED: HYDR453.3 TP (10:30)
[2025-03-23] MEDS ORDERED: DOCU100C36 PO (10:30)
[2025-03-23 17:45] VITALS: BP 150/100
[2025-03-23 20:00] VITALS: BP 150/90; TEMP 97.7; O2SAT 95
[2025-03-24 01:13] LABS: INR 1.16 (0.91-1.10)
[2025-03-24 07:37] LABS: PLATELET COUNT (AUTO) 202 K/uL (150-450); RED BLOOD CELL COUNT(AUTO) 4.46 MIL/uL (4.5-6.0); RED CELL DISTRIBUTION WIDTH 14.0 % (11.5-15.0); WHITE BLOOD COUNT (AUTO) 5.2 K/uL (4.3-11.0)
[2025-03-24 08:00] VITALS: BP 184/90; TEMP 98.2; O2SAT 96
[2025-03-24 08:01] LABS: CALCIUM, SERUM 8.4 mg/dL (8.5-10.1); CREATININE 1.1 mg/dL (0.6-1.3); PHOSPHORUS 2.5 mg/dL (2.5-4.9); SODIUM SERUM 144.0 mmol/L (136-145); UREA NITROGEN, BLOOD 17.0 mg/dL (7-18)
[2025-03-24] MEDS ORDERED: LABETALOL HCL IV 100MG VIAL ONE (09:44)
[2025-03-24] MEDS ORDERED: FENTANYL PF 100MCG/2ML AMPUL ONE (09:44)
[2025-03-24] MEDS ORDERED: MIDAZOLAM HCL 2 MG/2ML VIAL ONE (09:45)
[2025-03-24] MEDS ORDERED: BUPIVACAINE 0.5 % PF 150 MG/30 ML VIAL ONE (10:15)
[2025-03-24] MEDS ORDERED: LIDOCAINE 1%-EPI 1:100,000 20 ML VIAL ONE (10:15)
[2025-03-24] MEDS ORDERED: ANESTHESIA TRAY IN PYXIS 1 EA TRAY MC ONE (13:29)
[2025-03-24] MEDS: GABAPENTIN 100 MG CAPSULE PO SCH (14:00)
[2025-03-24] MEDS: CELECOXIB 100 MG CAPSULE PO SCH (14:00)
[2025-03-24] MEDS: ACETAMINOPHEN 325 MG TABLET PO SCH (14:00)
[2025-03-24 16:00] VITALS: BP 147/74; TEMP 98.1; O2SAT 95
[2025-03-24] MEDS: MAGNESIUM HYDROXIDE 30 ML UDC PO PRN (17:51)
[2025-03-24 20:00] VITALS: BP 160/78; TEMP 98.1; O2SAT 94
[2025-03-24] MEDS: hydrALAZINE HCL IV 20 MG VIAL IV PRN (22:45)
[2025-03-25 08:00] VITALS: BP 158/91; TEMP 98.8; O2SAT 98
[2025-03-25 08:44] VITALS: BP 158/91
[2025-03-25] MEDS: PANTOPRAZOLE 40 MG TABLET.DR PO SCH (08:45)
== END 2025-03-25 15:15 | disposition home or self-care (01) | DRG 352 ==
LOC: ER 17:21 → MED 20:32
PROVIDERS: ADMIT Nurse Practitioner Acute Care; ATTEND Internal Medicine
PROC: 0YU64JZ Supplement Left Inguinal Region with Synthetic Substitute, Percutaneous Endoscopic Approach (ICD-10-PCS; principal; 2025-03-24 08:30)
DX: K40.30 Unilateral inguinal hernia, with obstruction, without gangrene, not specified as recurrent (principal); N40.0 Benign prostatic hyperplasia without lower urinary tract symptoms; I25.10 Atherosclerotic heart disease of native coronary artery without angina pectoris; R74.01 Elevation of levels of liver transaminase levels; I10 Essential (primary) hypertension; E78.5 Hyperlipidemia, unspecified; K21.9 Gastro-esophageal reflux disease without esophagitis; Z90.79 Acquired absence of other genital organ(s); E11.9 Type 2 diabetes mellitus without complications; Z79.82 Long term (current) use of aspirin; Z79.02 Long term (current) use of antithrombotics/antiplatelets; Z79.899 Other long term (current) drug therapy; Z79.84 Long term (current) use of oral hypoglycemic drugs; Z95.5 Presence of coronary angioplasty implant and graft; R79.89 Other specified abnormal findings of blood chemistry
CPT/HCPCS: 36415; 80048-TC; 80076-TC; 81001; 83690-TC; 83735-TC; 84100-TC; 85025-TC; 85610-TC; 85730-TC; 86850-TC; 88302-TC; A4223; A6209; C1781; G0378; J0330; J0360; J0690; J1171; J1885; J2250; J2270; J2405; J2470; J2704; J3010; J3490; J7030